=== PATIENT | male | born 1945 | race Native Hawaiian/Other Pacific Islander ===

== ENCOUNTER 2019-07-01 09:46 | Outpatient (CLI) | payer OTHER, MEDICARE | END 2019-07-01 20:21 | disposition home or self-care (01) | LOC: RESP 09:46 | DX: R01.1 Cardiac murmur, unspecified (principal) | CPT/HCPCS: 93306 ==

== ENCOUNTER 2021-03-09 12:50 | Outpatient (CLI) | payer OTHER, MEDICARE | END 2021-03-09 19:33 | disposition home or self-care (01) | LOC: CT 12:50 | PROVIDERS: ATTEND Nurse Practitioner Primary Care | DX: R10.30 Lower abdominal pain, unspecified (principal); R39.198 Other difficulties with micturition | CPT/HCPCS: 36415; 82565; 84520; Q9963 ==

== ENCOUNTER 2021-03-11 11:59 | Outpatient (CLI) | payer OTHER, MEDICARE | END 2021-03-11 14:00 | disposition home or self-care (01) | LOC: INF 11:59 → OR 11:59 → INF 14:00 → EDSTATUS 03-15 10:49 | PROVIDERS: ATTEND Family Medicine | DX: N32.0 Bladder-neck obstruction (principal) | CPT/HCPCS: 51702 ==

== ENCOUNTER 2022-01-02 10:50 | Observation (INO) | payer OTHER, MEDICARE ==
[~2022-01-02] VITALS: Ht 175.3 cm; Wt 84.6 kg
[2022-01-02 12:22] LABS: PLATELET COUNT 182 K/uL (142-355)
[2022-01-02 12:43] LABS: POTASSIUM 3.9 mmol/L (3.6-5.2)
[2022-01-02 12:46] LABS: PARTIAL THROMBOPLASTIN TIME 23.2 SECONDS (24.5-33.6)
[2022-01-02 15:27] VITALS: BP 124/76; TEMP 98; Ht 175.3 cm; Wt 84.6 kg
[2022-01-02] MEDS ORDERED: CRESTOR5 MG PO (15:51)
[2022-01-02] MEDS ORDERED: LISINOPRIL HCTZ PO (15:52)
[2022-01-02] MEDS ORDERED: MOBIC15 MG PO (15:53)
[2022-01-02] MEDS ORDERED: GLIP10TA55 PO (15:53)
[2022-01-02] MEDS ORDERED: AMLODIPINE PO (15:54)
[2022-01-02] MEDS ORDERED: EUTHYROX88 MCG PO (15:55)
[2022-01-02] MEDS ORDERED: METF500T PO (15:55)
[2022-01-02 16:00] VITALS: BP 143/76; TEMP 98.4
[2022-01-02 20:00] VITALS: BP 129/71; TEMP 98.6
[2022-01-03] VITALS: BP 124/71; TEMP 98.4
[2022-01-03 04:00] VITALS: BP 148/82; TEMP 98.2
[2022-01-03 04:41] LABS: PLATELET COUNT 148 K/uL (142-355)
[2022-01-03 05:19] LABS: POTASSIUM 3.9 mmol/L (3.6-5.2)
[2022-01-03 08:00] VITALS: BP 141/80; TEMP 98
[2022-01-03 12:00] VITALS: BP 151/76; TEMP 98.3
== END 2022-01-03 13:15 | disposition home or self-care (01) ==
LOC: MED/SURG 10:50
PROVIDERS: ADMIT Family Medicine; ATTEND Family Medicine
DX: R07.89 Other chest pain (principal); R06.02 Shortness of breath; E11.9 Type 2 diabetes mellitus without complications
CPT/HCPCS: 36415; 80053; 82550; 83036; 83735; 83880; 84100; 84443; 84484; 85027; 85379; 85610; 85730; 87635; 93005; 99220; G0378; G0379; J1650; J1815; U0003

== ENCOUNTER 2022-01-16 08:26 | Outpatient (CLI) | payer OTHER, MEDICARE ==
[~2022-01-16] VITALS: Ht 175.3 cm; Wt 79.4 kg
[~2022-01-16 08:26] MED LIST: AMLODIPINE PO; CRESTOR5 MG PO; EUTHYROX88 MCG PO; GLIP10TA55 PO; LISINOPRIL HCTZ PO; METF500T PO; MOBIC15 MG PO
== END 2022-01-16 21:32 | disposition home or self-care (01) ==
LOC: NM 08:26
PROVIDERS: ATTEND Family Medicine
DX: R07.89 Other chest pain (principal)
CPT/HCPCS: A9500; J2785